=== PATIENT | male | born 1990 | race Caucasian/White ===

== ENCOUNTER 2023-02-24 18:58 | Emergency (ER) | payer OTHER, SELFPAY ==
[2023-02-24 18:59] VITALS: BP 130/83; PULSE 136; RESP 16; TEMP 37.5; O2SAT 100; BMI 20.1
[2023-02-24] MEDS: Fluorescein 1 MG STRIP 1 STRIP LEFT EYE (20:52)
[2023-02-24] MEDS: Tetracaine 0.5% Ophthalmic Bottle 1 DRP LEFT EYE (20:52)
--- NOTE | 2023-02-24 20:58 | ED.RN ---
TOOK EYE GEL INTO PT PER ORDERS. PT STATES HE DOESN'T WANT ANYTHING IN HIS EYES AND REFUSED MEDICATION. ASKED IF HE COULD HAVE HIS BLOOD TESTED. I ASKED PT WHAT SPECIFIC SYMPTOMS HE WAS HAVING THAT HE WOULD LIKE US TO TEST FOR. PT STATES I FEEL LIKE SHIT ALL THE TIME. I'M AWAKE AT NIGHT. SLEEP ALL DAY AND I'M TIRED. DR JEFF MADE AWARE. RECOMMENDS CONTINUING CURRENT PLAN OF CARE.
--- NOTE | 2023-02-24 21:25 | EX.ED.VIS.EY ---
HPI History of Present Illness Chief Complaint: Eye Problem Narrative Narrative: 32-year-old male with left eye drainage. He states has been ongoing for a day or so. Denies any direct trauma. He states something was bugging him on his eyelid and he squeezed it right before this happened. He denies anything in his eye such as a foreign body. He is a noncontact wearer. No fever or chills. Slight blurring of his vision. PFSH PFSH Home Medications erythromycin 5 mg/gram (0.5 %) eye ointment 0.5 inch EACH EYE TID #3.5 grams 02/24/23 [Rx Last Taken Unknown] ketorolac 0.5 % eye drops 1 drp EACH EYE Q8H PRN pain #10 mL 02/24/23 [Rx Last Taken Unknown] Allergy/AdvReac Type Severity Reaction Status Date / Time No Known Allergies Allergy Verified 02/24/23 18:59 Surgical History History of surgical procedure on eye proper using laser Social History Smoking Status: Current every day smoker tobacco type: cigarettes ROS ROS ED Constitutional Constitutional ED: Denies chills, fever(s) or sweats Eyes Eyes: Reports blurry vision left and other Details: Discharge from the left eye ; Denies change in vision ENT ENT ED: Denies ear pain or sore throat Cardiovascular Cardiovascular: Denies chest pain, palpitations or racing heartbeat Respiratory/Chest Respiratory/Chest: Denies cough, dyspnea or sputum Gastrointestinal Gastrointestinal: Denies abdominal pain, constipation, diarrhea, nausea or vomiting Genitourinary Genitourinary ED: Denies dysuria, hematuria or urinary frequency Musculoskeletal Musculoskeletal: Denies arthralgias, myalgias or neck pain Integumentary Denies abscess, Abrasions or rash Neurologic Neurologic: Denies headache(s), paresthesias or weakness Psychiatric Psychiatric: Denies anxiety, depression, suicidal ideation or suicidal thoughts Endocrine Endocrinology: Denies polydipsia or polyuria EXAM Physical Exam Const Vital Signs: 02/24/23 18:59 Temperature 99.5 F H Temperature Source Temporal Pulse Rate 136 H Respiratory Rate 16 Blood Pressure 130/83 H Blood Pressure Mean 98 Pulse Ox 100 Oxygen Delivery Method Room Air Positive well nourished General Appearance ED: NAD HEENT atraumatic Eyes PERRL and EOMs intact bilaterally Visual Acuity: visual acuity right eye 20 and visual acuity left eye 30 Visual Field: No central vision loss Eyelid: eyelids abnormal left lower eyelid erythema, lid margins crusty/scaly and swelling Conjunctiva: conjunctiva normal Slit Lamp: lids/lashes/lacrimal system and conjunctiva/sclera discharge Resp normal respiratory effort Neuro oriented x3 and CN's II-XII intact bilaterally Motor Exam: strength 5/5 throughout Skin no wounds MDM MDM MDM Narrative Medical decision making narrative: Patient presented to drainage out of the left eye. He is noncontact wearer. He states that he does have some visual complaints but is visual acuity is 20/20 OD and 2030 OS. He does have green drainage coming from the lower eyelid. Tetracaine was applied and fluorescein was instilled into the eye. I do not see any evidence of a corneal abrasion. Patient will be started on erythromycin ophthalmic. He was given a prescription for Toradol eyedrops. He was given a follow-up with ophthalmology. Impression: 1. Conjunctivitis Discharge Plan Triage Chief Complaint: Eye Problem ED Provider: Calvin Silverman Dx/Rx/DC Orders Instructions: ED Conjunctivitis, Bacterial Prescriptions: New erythromycin 5 mg/gram (0.5 %) ointment 0.5 inch EACH EYE TID Qty: 3.5 0RF ketorolac 0.5 % drops 1 drp EACH EYE Q8H PRN (Reason: pain) Qty: 10 0RF Primary Care Provider: Care Physician,No Primary Referrals: Tony Membreno MD [Med Staff - Active Staff] - 3-5 Days Care Physician,No Primary [Primary Care Provider] - Disposition Disposition: Home, Self Care Discharge Date/Time: 02/24/23 21:01
== END 2023-02-24 21:01 | disposition home or self-care (01) ==
PROVIDERS: Emergency Provider Student in an Organized Health Care Education/Training Program; Visit Provider Student in an Organized Health Care Education/Training Program
DX: H10.9 Unspecified conjunctivitis (principal); F17.210 Nicotine dependence, cigarettes, uncomplicated
CPT/HCPCS: 99282